=== PATIENT | male | born 1960 | race African-American/Black ===

== ENCOUNTER 2021-08-23 11:06 | Inpatient (IN) | payer OTHER ==
[2021-08-23 11:51] VITALS: BMI 29.5
[2021-08-23 12:16] LABS: BASO % 0.4 % (0-2.0); EOS % 0.3 % (0-4.5); HEMOGLOBIN 11.6 GM/dL (11.7-16.9); LYMPH % 9.5 % (8-40); MCH 25.4 pg (25.7-33.7); MCHC 33.3 g/dl (32.0-35.9); MEAN CELL VOLUME 76.4 fl (80-96); MEAN PLT VOLUME 7.8 fl (7.5-11.1); MONO % 7.5 % (3.8-10.2); NEUT % 82.3 % (42.8-82.8); PLATELET COUNT 320 10^3/uL (134-434); RBC 4.57 M/mm3 (4.00-5.60); RDW 15.1 % (11.9-15.9); WHITE BLOOD COUNT 6.3 K/mm3 (4.0-10.0)
[2021-08-23 12:37] LABS: CALCIUM 8.7 mg/dL (8.5-10.1)
[2021-08-23 12:38] LABS: ALBUMIN 3.6 g/dl (3.4-5.0); BLOOD UREA NITROGEN 27.6 mg/dL (7-18); MAGNESIUM 1.7 mg/dL (1.8-2.4)
[2021-08-23 12:41] LABS: CREATININE 2.2 mg/dL (0.55-1.3); PHOSPHOROUS 2.5 mg/dL (2.5-4.9)
[2021-08-23 12:42] LABS: BILIRUBIN,TOTAL 0.8 mg/dL (0.2-1); TOT PROT 7.3 g/dl (6.4-8.2)
[2021-08-23] MEDS ORDERED: POTASSIUM CHLORIDE TABS 20 MEQ TABLET.ER (FP) PO ONE (13:36)
[2021-08-23] MEDS ORDERED: SODIUM CHLORIDE 0.9% 500 ML INFUS.BAG IV ONE (13:37)
[2021-08-23] MEDS ORDERED: MAGNESIUM SULF 50% (8.12 MEQ/2 ML-1 GM VIAL) IVPB ONE (17:17)
[2021-08-23] MEDS ORDERED: MAGNESIUM 1GM/D5W - 1 GM/100 ML IVPB IVPB ONE (18:00)
[2021-08-23] MEDS: INSULIN SLIDING SCALE (NOVOLOG) 1 VIAL SQ SCH ×2 (18:05→21:38)
[2021-08-24 07:45] LABS: BASO % 0.5 % (0-2.0); EOS % 1.4 % (0-4.5); HEMOGLOBIN 11.5 GM/dL (11.7-16.9); LYMPH % 27.7 % (8-40); MCH 25.2 pg (25.7-33.7); MCHC 33.7 g/dl (32.0-35.9); MEAN CELL VOLUME 74.9 fl (80-96); MEAN PLT VOLUME 7.6 fl (7.5-11.1); MONO % 13.8 % (3.8-10.2); NEUT % 56.6 % (42.8-82.8); PLATELET COUNT 315 10^3/uL (134-434); RBC 4.54 M/mm3 (4.00-5.60); WHITE BLOOD COUNT 4.8 K/mm3 (4.0-10.0)
[2021-08-24 08:10] LABS: ALBUMIN 3.3 g/dl (3.4-5.0); CALCIUM 8.6 mg/dL (8.5-10.1)
[2021-08-24 08:11] LABS: BLOOD UREA NITROGEN 23.4 mg/dL (7-18)
[2021-08-24 08:13] LABS: CREATININE 1.7 mg/dL (0.55-1.3)
[2021-08-24 08:14] LABS: TOT PROT 6.8 g/dl (6.4-8.2)
[2021-08-24 08:15] LABS: BILIRUBIN,TOTAL 0.5 mg/dL (0.2-1)
[2021-08-24] MEDS: INSULIN SLIDING SCALE (NOVOLOG) 1 VIAL SQ SCH ×3 (11:28→21:43)
[2021-08-24] MEDS: SODIUM CHLORIDE 1,000 ML IV SCH (13:34)
[2021-08-24] MEDS: POTASSIUM CHLORIDE TABS 20 MEQ TABLET.ER (FP) PO SCH (16:10)
[2021-08-25] MEDS: SODIUM CHLORIDE 1,000 ML IV SCH ×2 (04:00→16:50)
[2021-08-25] MEDS: INSULIN SLIDING SCALE (NOVOLOG) 1 VIAL SQ SCH ×4 (06:00→21:48)
[2021-08-25] MEDS: POTASSIUM CHLORIDE TABS 20 MEQ TABLET.ER (FP) PO SCH (10:09)
[2021-08-25 17:45] LABS: CALCIUM 8.9 mg/dL (8.5-10.1)
[2021-08-25 17:46] LABS: ALBUMIN 3.8 g/dl (3.4-5.0); BLOOD UREA NITROGEN 25.5 mg/dL (7-18)
[2021-08-25 17:49] LABS: CREATININE 1.8 mg/dL (0.55-1.3)
[2021-08-25 17:50] LABS: TOT PROT 8.1 g/dl (6.4-8.2)
[2021-08-25 17:51] LABS: BILIRUBIN,TOTAL 0.4 mg/dL (0.2-1)
[2021-08-26] MEDS: INSULIN SLIDING SCALE (NOVOLOG) 1 VIAL SQ SCH ×4 (06:40→21:17)
[2021-08-26] MEDS: POTASSIUM CHLORIDE TABS 20 MEQ TABLET.ER (FP) PO SCH (09:18)
[2021-08-26] MEDS ORDERED: amLODIPine BESYLATE 5 MG TABLET (FP) PO SCH (13:15)
[2021-08-26] MEDS: ASPIRIN COATED 81 MG TABLET.EC PO SCH (14:18)
[2021-08-26 16:38] LABS: BASO % 0.5 % (0-2.0); EOS % 1.4 % (0-4.5); HEMATOCRIT 36.7 % (35.4-49); HEMOGLOBIN 12.3 GM/dL (11.7-16.9); LYMPH % 18.3 % (8-40); MCH 25.4 pg (25.7-33.7); MCHC 33.4 g/dl (32.0-35.9); MEAN CELL VOLUME 75.9 fl (80-96); MEAN PLT VOLUME 7.4 fl (7.5-11.1); MONO % 11.3 % (3.8-10.2); NEUT % 68.5 % (42.8-82.8); PLATELET COUNT 339 10^3/uL (134-434); RBC 4.84 M/mm3 (4.00-5.60); RDW 14.8 % (11.9-15.9); WHITE BLOOD COUNT 8.2 K/mm3 (4.0-10.0)
[2021-08-26 16:56] LABS: ALBUMIN 3.5 g/dl (3.4-5.0); BLOOD UREA NITROGEN 21.2 mg/dL (7-18); CALCIUM 8.5 mg/dL (8.5-10.1); MAGNESIUM 1.7 mg/dL (1.8-2.4)
[2021-08-26 17:00] LABS: CREATININE 1.5 mg/dL (0.55-1.3)
[2021-08-26 17:01] LABS: BILIRUBIN,TOTAL 0.4 mg/dL (0.2-1); TOT PROT 7.4 g/dl (6.4-8.2)
[2021-08-26] MEDS ORDERED: ATORVASTATIN CA 20 MG TABLET (FP) PO SCH (22:00)
[2021-08-27] MEDS: INSULIN SLIDING SCALE (NOVOLOG) 1 VIAL SQ SCH ×2 (06:13→11:48)
[2021-08-27] MEDS ORDERED: MAGNESIUM 1GM/D5W 100ML - 100 ML IVPB IVPB ONE (06:25)
[2021-08-27] MEDS ORDERED: amLODIPine BESYLATE 10 MG TABLET (FP) PO SCH (06:30)
[2021-08-27] MEDS ORDERED: sitaGLIPtin PHOSPHATE 50 MG TABLET PO SCH (07:00)
[2021-08-27 08:22] LABS: ALBUMIN 3.2 g/dl (3.4-5.0); CALCIUM 8.3 mg/dL (8.5-10.1)
[2021-08-27 08:23] LABS: BLOOD UREA NITROGEN 21.5 mg/dL (7-18)
[2021-08-27 08:26] LABS: CREATININE 1.4 mg/dL (0.55-1.3)
[2021-08-27 08:27] LABS: BILIRUBIN,TOTAL 0.6 mg/dL (0.2-1); TOT PROT 6.6 g/dl (6.4-8.2)
[2021-08-27] MEDS: ASPIRIN COATED 81 MG TABLET.EC PO SCH (09:14)
[2021-08-27] MEDS ORDERED: metoPROLOL SUCCINATE 25 MG TAB.SR.24H (FP) PO SCH (10:00)
[2021-08-27 13:59] VITALS: BP 142/84; PULSE 83; TEMP 98.5
== END 2021-08-27 17:28 | disposition home or self-care (01) | DRG 469 ==
LOC: JER 11:06 → JERBED 14:23 → J4W 20:02
PROVIDERS: ADMIT Family Medicine; ATTEND Family Medicine
DX: N17.9 Acute kidney failure, unspecified (principal); E87.6 Hypokalemia; I12.9 Hypertensive chronic kidney disease with stage 1 through stage 4 chronic kidney disease, or unspecified chronic kidney disease; E11.22 Type 2 diabetes mellitus with diabetic chronic kidney disease; N18.9 Chronic kidney disease, unspecified; R55 Syncope and collapse
CPT/HCPCS: 36415; 71045-TC-FY; 80053; 82728; 82962; 83036; 83540; 83550; 83735; 84100; 84484; 85025; 93005; 93010; 99285-25; C9803-CS; U0003; U0005